=== PATIENT | female | born 1970 | race Caucasian/White ===

== ENCOUNTER 2021-04-14 09:31 | Emergency (ER) | payer BC, SELFPAY ==
[2021-04-14 10:04] VITALS: BP 141/89; PULSE 60; RESP 19; TEMP 37; O2SAT 98; BMI 30.5
--- NOTE | 2021-04-14 10:16 | HMH.EDUTC ---
[facility] – [place] Disposition Clinical Impression: Sinusitis Qualifiers: Sinusitis location: unspecified location Chronicity: unspecified Qualified Code(s): J32.9 - Chronic sinusitis, unspecified Otitis media Qualifiers: Otitis media type: unspecified Laterality: right Qualified Code(s): H66.91 - Otitis media, unspecified, right ear Disposition: Home, Self-Care Condition on Discharge: Good Instructions: Sinusitis, DI for Sinusitis, Middle Ear Infection Additional Instructions: *Monitor Temp, Over the counter Motrin or Tylenol as directed/as needed Tylenol every 4 hours and Motrin every 6 hours (as long as your family doctor has told you that you can take it) for fever or pain. and straight to ER if unable to lower temp less than 101.0 after medication given *Warm salt water gargles may help to soothe the throat *Throat Lozenges *Warm fluids like tea with honey may help to soothe the throat *Sleep elevated *Humidifier/Vaporizer Take medication as prescribed Follow up with Family Doctor if needed Follow up IMMEDIATELY for new or worsening symptoms or no Noticeable improvement over the next 48-72 hours. 911 for difficulty breathing or swallowing Prescriptions: Amoxicillin/Potassium Clav [Augmentin 875-125 Tablet] 1 tab PO Q12H 7 Days #14 tab Transmission Status: Pending to [facility] Fluticasone Propionate [Flonase 50mcg nasal spray 16gm] 1 spr NS DAILY #1 each Transmission Status: Pending to [facility] Referrals: Remy Nunez [Primary Care Provider] - As needed Forms: Work/School Release Time of Disposition: 10:58 Medical Decision Making - David Inquiry Pt receiving controlled substance: No David was queried for this patient: No Vital Signs: 04/14/21 10:04 Temperature 98.6 F Temperature Source Temporal Artery Scan Pulse Rate [Right Brachial] 60 Respiratory Rate 19 Blood Pressure [Right Arm] 141/89 H Blood Pressure Mean [Right Arm] 106 Blood Pressure Source [Right Arm] Automatic Cuff Blood Pressure Position [Right Arm] Sitting 02 Sat by Pulse Oximetry 98 Oxygen Delivery Method Room Air - Lab Data Lab results reviewed: Yes: I reviewed the patient's lab results. Lab Results 04/14/21 10:07: Strep Scn Rapid Clinic Negative Orders (Tests/Meds): ORDERS Category Date Time Status Covid-19 Nasal PCR ([facility]) Routine Lab 04/14/21 10:06 Received Strep Screen Confirmation Stat Micro 04/14/21 10:07 Received [facility] UTC HPI - General Stated complaint: sore throat, cough, congestion Time Seen by Provider: 04/14/21 10:16 Mode of Arrival: Ambulatory Source of Information: Patient Limitations: No Limitations Description of Symptoms (Recalled from Triage Doc. by RN): sore throat, cough, ear pain, exposure to strep HEENT Symptoms (Recalled from RN notes): Yes Resp Symptoms (Recalled from RN notes): No Skin Symptoms (Recalled from RN notes): No MS Symptoms (Recalled from RN notes): No Functional Status (Recalled from RN notes): WNL - History of Present Illness Provider Complaint: Patient states that she has been around her son that is positive for strep throat State that she has been having sore throat, bilateral ear pain and feeling like they are stopped up and cough States that her work wanted her to come in and get checked out - Related Data Previous Rx's Medication Instructions Recorded Amoxicillin/Potassium Clav 1 tab PO Q12H 7 Days #14 tab 04/14/21 [Augmentin 875-125 Tablet] Fluticasone Propionate [Flonase 1 spr NS DAILY #1 each 04/14/21 50mcg nasal spray 16gm] Allergies Allergy/AdvReac Type Severity Reaction Status Date / Time No Known Allergies Allergy Verified 04/14/21 10:52 - Worker's Comp Is this a Worker's Comp case?: No [facility] History - Hepatitis A Screen Drug use history?: No High risk sexual behaviors?: No History of sexually transmitted infection?: No Currently employed?: No Childcare worker?: No Do you have indoor plumbing?: Yes Do you h
[2021-04-14 10:51] LABS: UTC Strep Screen (Rapid) Negative (Negative)
[2021-04-14 11:05] VITALS: BP 141/89; PULSE 60; RESP 19; TEMP 37; O2SAT 98
== END 2021-04-14 11:05 | disposition home or self-care (01) ==
PROVIDERS: Emergency Provider Nurse Practitioner; PCP Family Medicine
DX: J32.9 Chronic sinusitis, unspecified (principal); H66.91 Otitis media, unspecified, right ear
CPT/HCPCS: 87880; 99203; C9803; G0463; U0003; U0005

== ENCOUNTER 2021-06-13 21:11 | Emergency (ER) | payer OTHER, SELFPAY ==
[2021-06-13 21:20] VITALS: BP 157/65; PULSE 61; TEMP 37; O2SAT 98
[2021-06-13 21:21] VITALS: BP 157/65; PULSE 72; RESP 16; TEMP 37; O2SAT 100; BMI 30.2
[2021-06-13 21:23] VITALS: BMI 25.0
--- NOTE | 2021-06-13 21:24 | XR_ITS ---
PROCEDURE INFORMATION: Exam: XR Lumbosacral Spine Exam date and time: 06/13/2021 9:39 PM Age: 50 years old Clinical indication: Injury or trauma; Other: Twisted back at work; Work related; Sprain or strain, lumbar ligaments; Prior surgery; Surgery date: 6+ months; Surgery type: Spine fusion and colon cancer surgeries; Additional info: Fall TECHNIQUE: Imaging protocol: XR of the lumbosacral spine. Views: 2 or 3 views. COMPARISON: CR XR PELVIS 1-2V 06/13/2021 9:39 PM FINDINGS: Bones/joints: Posterior lumbar fusion at L5-S1. No acute fracture or malalignment. Soft tissues: Unremarkable. IMPRESSION: No acute findings.
--- NOTE | 2021-06-13 21:24 | XR_ITS ---
PROCEDURE INFORMATION: Exam: XR Thoracic Spine Exam date and time: 06/13/2021 9:42 PM Age: 50 years old Clinical indication: Injury or trauma; Other: Twisted back at work; Work related; Sprain or strain; Patient HX: No upper back surgeries; Additional info: Fall TECHNIQUE: Imaging protocol: XR of the thoracic spine. Views: 3 views. COMPARISON: CR XR LUMBAR SPINE 2-3V 06/13/2021 9:39 PM FINDINGS: Bones/joints: Normal. No acute fracture. Normal alignment. Soft tissues: Unremarkable. IMPRESSION: No acute findings.
--- NOTE | 2021-06-13 21:24 | XR_ITS ---
PROCEDURE INFORMATION: Exam: XR Pelvis Exam date and time: 06/13/2021 9:39 PM Age: 50 years old Clinical indication: Injury or trauma; Other: Twisted back at work; Work related; Sprain or strain; Bilateral; Pelvic region; Prior surgery; Surgery date: 6+ months; Surgery type: Lumbar surgery; Additional info: Fall TECHNIQUE: Imaging protocol: XR pelvis. Views: 1 or 2 view. COMPARISON: No relevant prior studies available. FINDINGS: Bones/joints: Unremarkable. No acute fracture. Soft tissues: Unremarkable. IMPRESSION: No acute findings.
[2021-06-13 21:30] VITALS: BP 160/75; PULSE 55; PULSE 63; O2SAT 100
--- NOTE | 2021-06-13 21:30 | HMH.EDBACK ---
ED Disposition Clinical Impression: Lumbar back pain Disposition: Home, Self-Care Condition on Discharge: Good Instructions: DI for Low Back Pain Additional Instructions: use meds and call pcp for follow up Prescriptions: predniSONE [Prednisone 20mg Tab] 20 mg PO BID #10 tab Transmission Status: Pending to [facility] Ketorolac Tromethamine [Toradol 10mg tablet] 10 mg PO Q6HP PRN #8 tab MDD 40mg/day PRN Reason: Moderate To Severe Pain Transmission Status: Pending to [facility] Tizanidine HCl [Zanaflex 4mg tab] 4 mg PO TID #21 tab Transmission Status: Pending to [facility] Referrals: Remy Nunez [Primary Care Provider] - - Critical Care Critical Care Time: No Attestation: On 06/13/21, the high probability of a clinically significant, sudden or life threatening deterioration of the following system(s) required my full and direct attention, intervention and personal management. The time I documented below is in addition to time spent performing reported procedures but includes the following listed in this critical care notation. Medical Decision Making - Medical Records Medical records reviewed: Yes: I reviewed the patient's medical records. - David Inquiry Pt receiving controlled substance: No Vital Signs: 06/13/21 21:20 06/13/21 21:21 06/13/21 21:30 Temperature 98.6 F 98.6 F Temperature Source Oral Oral Pulse Rate 61 63 Pulse Rate [Left Radial] 72 Respiratory Rate 16 Blood Pressure 157/65 H 160/75 H Blood Pressure [Right Arm] 157/65 H Blood Pressure Mean [Right Arm] 95 Blood Pressure Source [Right Arm] Automatic Cuff Blood Pressure Position [Right Arm] Sitting 02 Sat by Pulse Oximetry 98 100 100 Oxygen Delivery Method Room Air Room Air Room Air - Lab Data Lab results reviewed: Yes: I reviewed the patient's lab results. Orders (Tests/Meds): ED MEDICATIONS Discontinued Medications Generic Name Dose Route Start Last Admin Trade Name Freq PRN Reason Stop Dose Admin Dexamethasone Sodium Phosphate 8 mg 06/13/21 22:15 Dexamethasone 4mg/Ml 1ml Vial IM 06/13/21 22:16 ONCE ONE Dexamethasone Sodium Phosphate 8 mg 06/13/21 22:30 06/13/21 22:34 Dexamethasone 4mg/Ml 1ml Vial IV 06/13/21 22:31 8 mg ONCE ONE Administration Ketorolac Tromethamine 60 mg 06/13/21 22:15 Ketorolac 60mg/2ml Vial IM 06/13/21 22:16 ONCE ONE Ketorolac Tromethamine 30 mg 06/13/21 22:30 06/13/21 22:35 Ketorolac 30mg/Ml Vial IV 06/13/21 22:31 30 mg ONCE ONE Administration - Radiology Data #1 Image(s): T-Spine, L-Spine, Pelvis Image Reviewed: Yes I have reviewed radiologist's interpretation Preliminary Findings: No Fracture Seen Medical Decision Narrative: stable exam and xrays - workman comp for m completed Back Pain HPI - General Chief Complaint: Fall Stated Complaint: [id number] fell injured back Time Seen by Provider: 06/13/21 21:30 Mode of Arrival: Ambulatory Source of Information: Patient, Medical Record Limitations: Physical Limitations Description of Symptoms (Recalled from ER Triage Doc. 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 PT REPORTS LOW BACK PAIN, SHE STATES IT IS A THROBBING PAIN AND RATES IT A 5/10. - History of Present Illness HPI Narrative: this is a workman comp injury as pt tripped and fell at work with back injury - occurred yesterday and pain has progressed with radiation to buttocks - had prev back surg in past -no cauda equina sx Complaint: back injury Onset (ago): day(s) Duration: constant Similar Symptoms Previously: No Location: lumbar spine Severity: moderate Quality: sharp Radiation: buttocks Context: fall Associated symptoms: denies other symptoms Pertinent Issues R/T Back Pain: Back Surgery - Related Data Home Medications Medication Instructions Recorded Confirmed buPROPion HCL [Bupropion HCl ER] 200 mg PO DAILY
--- NOTE | 2021-06-13 21:31 | PC.NURSE ---
ER speaking with pt
--- NOTE | 2021-06-13 21:37 | PC.NURSE ---
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
[2021-06-13 22:59] VITALS: BP 113/72; PULSE 79; RESP 19; TEMP 36.8; O2SAT 98
== END 2021-06-13 23:02 | disposition home or self-care (01) ==
PROVIDERS: Emergency Provider Emergency Medicine; PCP Family Medicine
DX: M54.50 Low back pain, unspecified (principal); W01.0XXA Fall on same level from slipping, tripping and stumbling without subsequent striking against object, initial encounter; Y92.69 Other specified industrial and construction area as the place of occurrence of the external cause; Y99.0 Civilian activity done for income or pay
CPT/HCPCS: 72072; 72100; 72170; 96374; 96375; 99283

== ENCOUNTER 2022-02-05 13:57 | Emergency (ER) | payer BC, SELFPAY ==
[2022-02-05 16:02] VITALS: BP 159/92; PULSE 76; RESP 16; TEMP 37.6; O2SAT 96; BMI 30.2
--- NOTE | 2022-02-05 16:37 | EXP.UTC ---
Discharge Plan Disposition Patient Disposition: Home, Self-Care Condition: Good Prescriptions Prescriptions: No Action lamotrigine 200 MG tablet 200 mg PO BID lisinopril 10 MG tablet 10 mg PO DAILY bupropion HCl 200 MG tablet sustained-release 12 hr 200 mg PO DAILY prednisone 20 MG tablet 20 mg PO BID Qty: 10 0RF tizanidine 4 MG tablet 4 mg PO TID Qty: 21 0RF ketorolac 10 MG tablet 10 mg PO Q6HP MDD 40mg/day PRN (Reason: Moderate To Severe Pain) Qty: 8 0RF Rx Instructions: Therapy initiated with IV/IM dose Referrals Follow up/Referrals: Remy Nunez [Primary Care Provider] - See instructions Clinical Impressions Clinical Impression: Contact with and (suspected) exposure to covid-19, Upper respiratory tract infection Stand Alone Forms Stand Alone Forms: Work/School Release Instructions Patient Instructions: Preventing the Spread of Coronavirus Discharge Instructions, DI for COVID-19 (Suspected or Confirmed ) Discharge ED Provider: Dinah Arambula [facility] [place] General Stated complaint: Cough,Congestion,fever,SOA Mode of Arrival: Ambulatory Source of Information: Patient Limitations: No Limitations Time Seen by Provider: 02/05/22 16:22 Description of Symptoms (Recalled from Triage Doc. by RN): pt comes in with c/o cough, fever, body aches, stuffy nose. symptoms began yesterday. pts daughter has covid HEENT Symptoms (Recalled from RN notes): Yes Resp Symptoms (Recalled from RN notes): Yes Skin Symptoms (Recalled from RN notes): No MS Symptoms (Recalled from RN notes): No Functional Status (Recalled from RN notes): n/a History of Present Illness Provider Complaint: Pt states that daughter has Covid. She started getting sick last night with body aches, fever, runny nose, and cough Related Data Home Medications Medication Instructions Recorded Confirmed bupropion HCl 200 mg tablet,12 hr 200 mg PO DAILY mood 06/13/21 06/13/21 sustained-release lamotrigine 200 mg tablet 200 mg PO BID Pain 06/13/21 06/13/21 lisinopril 10 mg tablet 10 mg PO DAILY htn 06/13/21 06/13/21 Previous Rx's Medication Instructions Recorded ketorolac 10 mg tablet 10 mg PO Q6HP PRN Moderate To 04/24/22 Severe Pain #8 tabs prednisone 20 mg tablet 20 mg PO BID #10 tabs 06/13/21 tizanidine 4 mg tablet 4 mg PO TID #21 tabs 06/13/21 Allergies Allergy/AdvReac Type Severity Reaction Status Date / Time No Known Allergies Allergy Verified 02/05/22 16:04 Worker's Comp Is this a Worker's Comp case?: No PFSH PFS Disclaimer: The information contained in this section may have been updated after the patient was seen, as this information can be updated by other users. Social History Smoking Status: Never smoker alcohol intake: never current occupational status: employed Travel in the last 8 weeks: None ROS Obtained: Yes All systems reviewed & no additional complaints except as documented Constitutional Constitutional: Reports body ache, Reports chills, Reports fatigue, Reports fever(s), Reports headache(s) and Reports malaise Eyes Eyes: Reports system reviewed and no additional complaints, except as documented ENT Ears, Nose, Mouth, and Throat: Reports headache(s), Reports nasal congestion and Reports nasal discharge Cardiovascular Cardiovascular: Reports system reviewed and no additional complaints, except as documented Respiratory Respiratory: Reports non-productive cough Gastrointestinal Gastrointestingal: Reports system reviewed and no additional complaints, except as documented Genitourinary Female Genitourinary: Reports system reviewed and no additional complaints, except as documented Musculoskeletal Musculoskeletal: Reports myalgias Integumentary/Breasts Skin/Breast: Reports system reviewed and no additional complaints, except as documented Neurologic Neurologic: Reports system reviewed and no additional complaints, except as documented and Reports headache(s) E
[2022-02-05 16:46] VITALS: BP 159/92; PULSE 76; RESP 16; TEMP 37.6
== END 2022-02-05 16:46 | disposition home or self-care (01) ==
PROVIDERS: Emergency Provider Nurse Practitioner Family; PCP Family Medicine
DX: J06.9 Acute upper respiratory infection, unspecified (principal); Z20.822 Contact with and (suspected) exposure to COVID-19
CPT/HCPCS: 99212; G0463

== ENCOUNTER 2022-08-04 11:47 | Emergency (ER) | payer BC, SELFPAY ==
[2022-08-04 11:55] VITALS: BP 181/85; PULSE 59; RESP 22; TEMP 36.9; O2SAT 95; BMI 32.5
[2022-08-04 12:06] VITALS: BP 181/85; PULSE 59; RESP 22; TEMP 36.9; O2SAT 95
--- NOTE | 2022-08-04 12:07 | EXP.UTC ---
Discharge Plan Disposition Patient Disposition: Home, Self-Care Condition: Good Prescriptions Prescriptions: New benzonatate 100 mg capsule 100 mg PO TID PRN (Reason: cough) Qty: 30 0RF azithromycin [Zithromax Z-Conor] 250 mg tablet See Rx Instructions .ROUTE .COMPLEX 5 Days Qty: 6 0RF Rx Instructions: For 250 mg dose pack: take 500 mg today (day 1), then 250 mg for 4 days (days 2-5) methylprednisolone [Medrol (Conor)] 4 mg tablets,dose pack See Rx Instructions .Route .COMPLEX 6 Days Qty: 21 0RF Rx Instructions: taper pack; guaifenesin [Mucinex] 600 mg tablet extended release 12hr 600 - 1,200 mg PO BID PRN (Reason: cough) Qty: 20 0RF No Action lamotrigine 200 mg tablet 200 mg PO DAILY bupropion HCl 200 MG tablet sustained-release 12 hr 200 mg PO DAILY Referrals Follow up/Referrals: Remy Nunez MD [Primary Care Provider] - See instructions Activity Restrictions/Add. Instructions Additional Instructions/Restrictions: Start antibiotic today. Be sure to complete entire prescription even if feeling better Monitor temp. Tylenol every 4 hours as needed and / or ibuprofen every 6 hours as needed ( As long as your primary care physician has told you that it ok to take both. For fever/aches/pains ER if no less than 101 despite Tylenol or Motrin Humidifier/vaporizer or hot steamy shower Mucinex during the day for your cough and cough suppressant only at night. Be sure to drink lots of water. *Tessalon Perles will not cause drowsiness but use at bedtime to help stop cough so that you may get some rest. *Start steroid tomorrow Helps with inflammation therefore, cough and wheezing. Follow directions on the package. Reviewed side effects. Patient reports taking them before. Follow up IMMEDIATELY for new or worsening of symptoms OR no noticeable improvement over the next 48-72 hours. 911 immediately for any life threatening symptoms such as chest pain or difficulty breathing Clinical Impressions Clinical Impression: Bronchitis Sinusitis Qualifiers: Sinusitis location: unspecified location Chronicity: unspecified Qualified Code(s): J32.9 - Chronic sinusitis, unspecified Instructions Patient Instructions: Sinusitis, Acute Bronchitis, DI for Sinusitis Discharge ED Provider: Glendy Márquez [facility] HPI General Stated complaint: Cough congestion headache Mode of Arrival: Ambulatory Source of Information: Patient Limitations: No Limitations Time Seen by Provider: 08/04/22 12:07 Description of Symptoms (Recalled from Triage Doc. by RN): PATIENT C/O COUGH, SINUS AND CHEST CONGESTION X 3 DAYS. ALSO REPORTS HEADACHE SINCE THIS MORNING HEENT Symptoms (Recalled from RN notes): Yes Resp Symptoms (Recalled from RN notes): Yes Skin Symptoms (Recalled from RN notes): No MS Symptoms (Recalled from RN notes): No Functional Status (Recalled from RN notes): WNL History of Present Illness Provider Complaint: Patient states that she has been having cough, sinus and chest congestion and at times coughing up some mucous for the last 3 days States that this morning she woke up with headache but hasnt taken her BP meds today Related Data Home Medications Medication Instructions Recorded Confirmed bupropion HCl 200 mg tablet,12 hr 200 mg PO DAILY Depression 06/13/21 08/04/22 sustained-release lamotrigine 200 mg tablet 200 mg PO DAILY Depression 08/04/22 08/04/22 Previous Rx's Medication Instructions Recorded azithromycin 250 mg tablet See Rx Instructions PO .COMPLEX 5 08/04/22 (Zithromax Z-Conor) days #6 tabs benzonatate 100 mg capsule 100 mg PO TID PRN cough #30 caps 08/04/22 guaifenesin 600 mg tablet, 600 - 1,200 mg PO BID PRN cough 08/04/22 extended release 12 hr (Mucinex) #20 tabs methylprednisolone 4 mg tablets in See Rx Instructions .Route 08/04/22 a dose pack (Medrol (Conor)) .COMPLEX 6 days #21 tabs Allergies Allergy/AdvReac Type Severity Reaction S
== END 2022-08-04 12:31 | disposition home or self-care (01) ==
PROVIDERS: Emergency Provider Nurse Practitioner; PCP Family Medicine
DX: J20.9 Acute bronchitis, unspecified (principal); I10 Essential (primary) hypertension; F41.9 Anxiety disorder, unspecified; F32.A Depression, unspecified
CPT/HCPCS: 96372; 99212; 99214; G0463; J0696

== ENCOUNTER 2023-01-23 15:30 | Emergency (ER) | payer BC, SELFPAY ==
[2023-01-23 17:10] VITALS: BP 177/76; PULSE 68; RESP 18; TEMP 37.2; O2SAT 96; BMI 33.5
--- NOTE | 2023-01-23 17:31 | EXP.UTC ---
Discharge Plan Disposition Patient Disposition: Home, Self-Care Condition: Good Prescriptions Prescriptions: New dextromethorphan polistirex [Delsym 12 hour] 30 mg/5 mL suspension,extended rel 12 hr 10 ml PO Q12H PRN (Reason: cough) Qty: 89 0RF No Action lamotrigine 200 mg tablet 200 mg PO DAILY lisinopril 10 mg tablet 30 mg PO DAILY Patient Comments: TAKE 1 TABLET BY MOUTH ONCE DAILY bupropion HCl 200 MG tablet sustained-release 12 hr 200 mg PO DAILY Referrals Follow up/Referrals: Remy Nunez MD [Primary Care Provider] - See instructions Activity Restrictions/Add. Instructions Additional Instructions/Restrictions: *Monitor Temp, Over the counter Motrin or Tylenol as directed/as needed Tylenol every 4 hours and Motrin every 6 hours (as long as your family doctor has told you that you can take it) for fever or pain. and straight to ER if unable to lower temp less than 101.0 after medication given *Warm salt water gargles may help to soothe the throat *Throat Lozenges? *Warm fluids like tea with honey may help to soothe the throat? *Sleep elevated *Humidifier/Vaporizer Follow up IMMEDIATELY for new or worsening symptoms or no Noticeable improvement over the next 48-72 hours. 911 for difficulty breathing or swallowing You were tested for today for Upper Respiratory Panel with COVID19 your test result should be back in the next 24 hours You may check for your results on the [facility] [employer] [facility] Portal if your COVID test is positive you must Quarantine for 5 days Clinical Impressions Clinical Impression: Viral syndrome Stand Alone Forms Stand Alone Forms: Work/School Release Instructions Patient Instructions: DI for Viral Syndrome Discharge ED Provider: [place]y Márquez [facility] [place] General Stated complaint: cough and runny nose Mode of Arrival: Ambulatory Source of Information: Patient Limitations: No Limitations Time Seen by Provider: 01/23/23 17:31 Description of Symptoms (Recalled from Triage Doc. by RN): cough, stuffy nose, body aches, and chills HEENT Symptoms (Recalled from RN notes): Yes Resp Symptoms (Recalled from RN notes): No Skin Symptoms (Recalled from RN notes): No MS Symptoms (Recalled from RN notes): No Functional Status (Recalled from RN notes): n/a History of Present Illness Provider Complaint: Patient states that she was recently around her boss that has the flu States that she started with body aches, chills, stuffy nose and cough states that she wasnt able to work today and wanted to get checked for flu Related Data Home Medications Medication Instructions Recorded Confirmed bupropion HCl 200 mg tablet,12 hr 200 mg PO DAILY Depression 06/13/21 01/23/23 sustained-release lamotrigine 200 mg tablet 200 mg PO DAILY Depression 08/04/22 01/23/23 lisinopril 10 mg tablet 30 mg PO DAILY 01/23/23 01/23/23 Previous Rx's Medication Instructions Recorded dextromethorphan polistirex 30 10 ml PO Q12H PRN cough #89 mL 01/23/23 mg/5 mL oral susp ext.release 12hr (Delsym 12 hour) Allergies Allergy/AdvReac Type Severity Reaction Status Date / Time No Known Allergies Allergy Verified 01/23/23 17:19 Worker's Comp Is this a Worker's Comp case?: No [facility] Disclaimer: The information contained in this section may have been updated after the patient was seen, as this information can be updated by other users. Medical History (Updated 01/23/23 @ 17:36 by Glendy Márquez APRN) Anxiety Cancer Depression Hypertension Surgical History History of section History of hysterectomy History of tubal ligation Social History Smoking Status: Never smoker alcohol intake: never current occupational status: employed Travel in the last 8 weeks: None ROS Obtained: Yes All systems reviewed & no add
[2023-01-23 17:37] LABS: UTC Influenza A Antigen Negative (Negative); UTC Influenza B Antigen Negative (Negative)
[2023-01-23 17:42] VITALS: BP 177/76; PULSE 68; RESP 19; TEMP 37.2; O2SAT 96
== END 2023-01-23 17:42 | disposition home or self-care (01) ==
PROVIDERS: Emergency Provider Nurse Practitioner; PCP Family Medicine
DX: U07.1 COVID-19 (principal); R05.9 Cough, unspecified; R09.81 Nasal congestion; M79.18 Myalgia, other site; R68.83 Chills (without fever); I10 Essential (primary) hypertension
CPT/HCPCS: 87635; 87804; 99212; 99214; G0463